=== PATIENT | female | born 1960 | race Caucasian/White ===

== ENCOUNTER 2017-02-07 06:29 | Day surgery (SDC) | payer OTHER ==
--- NOTE | 2017-02-07 06:21 | PCM.PREANE ---
Preanesthetic Assessment - Anesthesia/Transfusion/Family Hx Anesthesia History: Prior Anesthesia Without Reaction Family History of Anesthesia Reaction: No Transfusion History: No Prior Transfusion(s) Intubation History: Unknown - Review of Systems General: No Symptoms Pulmonary: No Symptoms Cardiovascular: No Symptoms (history of HTN) Gastrointestinal: No Symptoms, Constipation Neurological: No Symptoms (history of lower back pain/ currently no pain noted. Occasional left hip pain noted due to sitting at work.), Dizziness (Only with quick head movements.), Numbness (Right sciatica pain and paresthesia noted) Other: Reports: Easy Bruising, Diabetes (Pre-diabetic: with diet and exercise being advised.), Sinus Problem (history of sinus surgery in ) - Physical Assessment NPO Status Date: 02/06/17 NPO Status Time: 21:00 Pulse: 66 O2 Sat by Pulse Oximetry: 95 Respiratory Rate: 16 Blood Pressure: 123/64 Temperature: 36.6 C Height: 1.65 m Weight: 79.379 kg ASA Class: 2 Mental Status: Alert & Oriented x3 Airway Class: Mallampati = 2 Dentition: Reports: Normal Dentition, Caries Thyro-Mental Finger Breadths: 3 Mouth Opening Finger Breadths: 3 ROM/Head Extension: Full Lungs: Clear to Auscultation, Normal Respiratory Effort Cardiovascular: Regular Rate, Regular Rhythm, No Murmurs - Lab Values: Labs reviewed and noted and within acceptable ranges to proceed with scheduled procedure. Elevated BUN:20 Elevated CR:1.1 - Imaging/EKG Impressions: EKG: SR rate=61, left axis deviation, abnormal R-wave progression, Minimal ST elevation, anterior leads. - Allergies Allergies/Adverse Reactions: Allergies Allergy/AdvReac Type Severity Reaction Status Date / Time animal dander Allergy Cannot Verified 02/06/17 13:31 Remember dust Allergy Cannot Uncoded 02/06/17 13:31 Remember - Anesthesia Plan Pre-Op Medication Ordered: Beta Jesi Beta Jesi: Metoprolol Med Last Dose Date: 02/07/17 Med Last Dose Time: 06:15 - Acknowledgements Anesthesia Type Planned: General Anesthesia Pt an Appropriate Candidate for the Planned Anesthesia: Yes Alternatives and Risks of Anesthesia Discussed w Pt/Guardian: Yes Pt/Guardian Understands and Agrees with Anesthesia Plan: Yes PreAnesthesia Questionnaire HEENT History: Reports: Impaired Vision Cardiovascular History: Reports: Hypertension Respiratory History: Reports: None Gastrointestinal History: Reports: Hemorrhoids Genitourinary History: Reports: None 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: , Other (See Below) Other OB/BYN History: acute vulvitis Musculoskeletal History: Reports: Back Pain, Chronic, Other (See Below) Other Musculoskeletal History: right shoulder pain Neurological History: Reports: Other (See Below) Other Neuro History: cervical os stenosis Psychiatric History: Reports: None Endocrine/Metabolic History: Reports: Vitamin D Deficiency Hematologic History: Reports: None Immunologic History: Reports: None Oncologic (Cancer) History: Reports: None Dermatologic History: Reports: None - Past Surgical History Head Surgeries/Procedures: Reports: None HEENT Surgical History: Reports: LASIK, Naso-Sinus Surgery Cardiovascular Surgical History: Reports: None Respiratory Surgical History: Reports: None GI Surgical History: Reports: Colonoscopy Female Surgical History: Reports: Section, Tubal Ligation Male Surgical History: Reports: None Endocrine Surgical History: Reports: None Neurological Surgical History: Reports: None Musculoskeletal Surgical History: Reports: None Oncologic Surgical History: Reports: None Dermatological Surgical History: Reports: None - SUBSTANCE USE Smoking Status *Q: Never Smoker Recreational Drug Use History: No - HOME MEDS Home Medications: Home Meds Fluticasone Furoate [Veramyst] 1 spray NASBOTH DAILY 11/27/13 [History] Metoprolol Succinate [Toprol XL 50mg] 50 mg PO DAILY 11/27/13 [History] Spironolactone [Aldactone] 25 mg PO BID 11/27/13 [History] Cholecalciferol (Vitamin D3) [Vitamin D3] 5,000 unit PO DAILY 02/06/17 [History] Docusate Sodium [Colace] 200 mg PO BID 02/06/17 [History] - CURRENT (IN HOUSE) MEDS Current Meds: Current Medications Lactated Ringer's (Ringers, Lactated) 1,000 mls @ 125 mls/hr IV ASDIRECTED KELLY Lidocaine/Sodium Bicarbonate (Buffered Lidocaine 1% In Ns 8.4%) 0.25 ml IV ONETIME PRN PRN Reason: Prior to IV Start Sodium Chloride (Saline Flush) 10 ml FLUSH ASDIRECTED PRN PRN Reason: Keep Vein Open
[~2017-02-07 06:29] MED LIST: Lactated Ringers 1,000 ML IV SCH; Lidocaine 1%/Sod Bicarbonate in NS 8.4% 1 ML Syringe IV PRN; Sodium Chloride 0.9% 10 ML Syringe FLUSH PRN
[2017-02-07] MEDS ORDERED: ceFAZolin 1 GM Vial ONE (06:58)
[2017-02-07] MEDS ORDERED: Lactated Ringers 1,000 ML ONE (06:58)
[2017-02-07] MEDS ORDERED: Ondansetron 4 MG/2 ML SDV ONE (06:58)
[2017-02-07] MEDS ORDERED: Dexamethasone 4 MG/ML 5 ML MDV ONE (06:58)
[2017-02-07] MEDS ORDERED: Lidocaine 1% 4 ML ONE (06:58)
[2017-02-07] MEDS ORDERED: fentaNYL 100 MCG/2 ML SDV ONE (06:59)
[2017-02-07] MEDS ORDERED: Propofol 200 MG/20 ML SDV ONE (06:59)
[2017-02-07] MEDS ORDERED: Midazolam 1 MG/ML 2 ML SDV ONE (06:59)
[2017-02-07] MEDS ORDERED: Ondansetron 4 MG/2 ML SDV IVPUSH PRN ×2 (07:39→08:05)
[2017-02-07] MEDS ORDERED: fentaNYL 100 MCG/2 ML SDV IVPUSH PRN (07:39)
[2017-02-07] MEDS ORDERED: HYDROmorphone 0.5 MG/0.5 ML Syringe IVPUSH PRN (07:39)
--- NOTE | 2017-02-07 08:04 | PCM.OPNOTE ---
- General Post-Op/Procedure Note Date of Surgery/Procedure: 02/07/17 Operative Procedure(s): Hysteroscopy and dilation and curettage Findings: Uterus sounded to 7 cm. It was mid position. Cervix was less stenotic then on an omental biopsy attempted in the clinic done previously. The uterus is freely mobile, no adnexal abnormalities were noted. No parametrial induration present. Cervix did appear multiparous. Endometrial cavity showed a small area of ecchymosis versus necrotic tissue anteriorly and to the patient's left side. Tubal ostia were visualized. One small polypoid structure appeared present in the anterior endometrial area. Pre Op Diagnosis: Postmenopausal uterine bleeding, cervical stenosis Post-Op Diagnosis: Postmenopausal uterine bleeding Anesthesia Technique: General LMA Primary Surgeon: Sahil Love Anesthesia Provider: Jasmyn Steiner Fluid Replacement, Intraop: 500 EBL in mLs: 5 Complications: None Condition: Good Free Text/Narrative:: Surgery duration: 20 minutes Procedure: The patient is taking the operative placed in a supine position on the operating table. She received 2 g of Ancef preoperatively for infection prophylaxis and had sequential compression stockings in place for DVT prophylaxis. Patient was given general anesthesia and an LMA was placed for ventilation. She is placed in a dorsal lithotomy position and prepped and draped in usual fashion. An exam under anesthesia was performed. Findings as described above. A weighted speculum was placed in the vagina. Cervix is visualized. It was grasped anteriorly with a single-tooth tenaculum. Uterus was then sounded to a depth of 10-1/2 cm. It is from the anterior, mid position. The cervix was dilated to entrance of a 5 mm 12 rigid hysteroscope. This was placed without problem and normal saline was used as a distending medium. The endometrial cavity was visualized. Findings as described above. Decision was made to proceed with polypectomy. Polyp forceps was introduced and polyp were removed. After this is performed a D&C was performed. Moderate amount tissue was obtained. Minimal bleeding was encountered. Hysteroscope was then placed back into the endometrial cavity. Blood was flushed out and the findings were consistent relatively normal-appearing endometrial cavity. At this point the scope was removed. The vagina was cleared of old blood, the cervix was released and the weighted speculum was removed. Patient was returned to supine position and awakened from general anesthesia. She tolerated the procedure well and operating room in good condition.
--- NOTE | 2017-02-07 08:11 | PCM.POSTAN ---
POST ANESTHESIA ASSESSMENT - MENTAL STATUS Mental Status: Alert - VITAL SIGNS Pulse Rate: 59 SaO2: 95 Resp Rate: 12 Blood Pressure: 126/52 Temperature: 36.4 C - RESPIRATORY Respiratory Status: Respiratory Rate WNL, Airway Patent, O2 Saturation Stable, Supplemental Oxygen - CARDIOVASCULAR CV Status: Pulse Rate WNL, Blood Pressure Stable - GASTROINTESTINAL GI Status: No Symptoms - POST OP HYDRATION Hydration Status: Adequate & Stable
[2017-02-07] MEDS ORDERED: Ibuprofen 600 MG Tab PO ONE (10:45)
== END 2017-02-07 11:07 | disposition home or self-care (01) ==
LOC: JD.SDS 06:29
PROVIDERS: ATTEND Obstetrics & Gynecology
DX: N84.0 Polyp of corpus uteri (principal); I10 Essential (primary) hypertension; J30.9 Allergic rhinitis, unspecified; E55.9 Vitamin D deficiency, unspecified; Z79.51 Long term (current) use of inhaled steroids; Z79.899 Other long term (current) drug therapy; Z91.048 Other nonmedicinal substance allergy status; Z98.890 Other specified postprocedural states; Z98.51 Tubal ligation status
CPT/HCPCS: 58558; 93005; J0690; J1100; J1170; J2250; J2405; J3010; J7120; 00952; J2704